=== PATIENT | female | born 1955 | race Caucasian/White ===

== ENCOUNTER → 2020-08-01 | Outpatient (CLI) | payer OTHER | END | disposition home or self-care (01) | LOC: MAMO-SONO 08:52 | PROVIDERS: ATTEND Radiology Diagnostic Radiology | DX: M25.511 Pain in right shoulder (principal); M67.88 Other specified disorders of synovium and tendon, other site ==

== ENCOUNTER 2020-12-05 08:00 | Outpatient (CLI) | payer OTHER | END 2020-12-05 08:30 | disposition home or self-care (01) | LOC: PPH VACUNA 08:00 | DX: Z23 Encounter for immunization (principal) ==

== ENCOUNTER 2021-03-19 12:42 | Outpatient (CLI) | payer OTHER | END 2021-03-19 13:00 | disposition home or self-care (01) | LOC: MAMO-SONO 12:42 | PROVIDERS: ATTEND Psychiatry & Neurology Psychiatry | DX: N64.59 Other signs and symptoms in breast (principal); Z12.31 Encounter for screening mammogram for malignant neoplasm of breast ==

== ENCOUNTER → 2021-04-24 | Outpatient (CLI) | payer OTHER | END | disposition home or self-care (01) | LOC: TOM 06:30 | PROVIDERS: ATTEND Internal Medicine Nephrology | DX: Q61.01 Congenital single renal cyst (principal) ==

== ENCOUNTER 2022-05-02 06:15 | Outpatient (CLI) | payer OTHER | END 2022-05-02 06:30 | disposition home or self-care (01) | LOC: MAMO-SONO 06:15 | PROVIDERS: ATTEND Psychiatry & Neurology Psychiatry | DX: Z12.39 Encounter for other screening for malignant neoplasm of breast (principal); N64.4 Mastodynia ==

== ENCOUNTER 2022-05-02 08:02 | Outpatient (CLI) | payer OTHER | END 2022-05-02 08:03 | disposition home or self-care (01) | LOC: NUCLEAR 08:02 | PROVIDERS: ATTEND Psychiatry & Neurology Psychiatry | DX: Z13.820 Encounter for screening for osteoporosis (principal) ==

== ENCOUNTER → 2022-05-29 | Outpatient (CLI) | payer OTHER | END | disposition home or self-care (01) | LOC: SONOGRAMA 06:20 | DX: M79.642 Pain in left hand (principal); M79.645 Pain in left finger(s) ==

== ENCOUNTER 2022-12-18 06:32 | Outpatient (CLI) | payer OTHER | END 2022-12-18 06:33 | disposition home or self-care (01) | LOC: LAB 06:32 | DX: E21.3 Hyperparathyroidism, unspecified (principal); E78.5 Hyperlipidemia, unspecified; R80.8 Other proteinuria; N39.0 Urinary tract infection, site not specified; E03.9 Hypothyroidism, unspecified; E11.65 Type 2 diabetes mellitus with hyperglycemia; I11.9 Hypertensive heart disease without heart failure; I70.0 Atherosclerosis of aorta ==

== ENCOUNTER 2023-01-27 07:13 | Outpatient (CLI) | payer OTHER | END 2023-01-27 07:14 | disposition home or self-care (01) | LOC: NUCLEAR 07:13 | DX: I20.0 Unstable angina (principal) | CPT/HCPCS: 78452; 93017; A9500; J0153 ==

== ENCOUNTER 2023-05-19 14:40 | Outpatient (CLI) | payer OTHER | END 2023-05-19 15:00 | disposition home or self-care (01) | LOC: MRI 14:40 | PROVIDERS: ATTEND Internal Medicine Rheumatology | DX: M54.2 Cervicalgia (principal); M47.812 Spondylosis without myelopathy or radiculopathy, cervical region | CPT/HCPCS: 72141 ==

== ENCOUNTER 2024-02-06 07:04 | Outpatient (CLI) | payer OTHER | END 2024-02-06 07:25 | disposition home or self-care (01) | LOC: TOM 07:04 | PROVIDERS: ATTEND General Practice | DX: N60.99 Unspecified benign mammary dysplasia of unspecified breast (principal); Z12.31 Encounter for screening mammogram for malignant neoplasm of breast; R93.1 Abnormal findings on diagnostic imaging of heart and coronary circulation; R51.9 Headache, unspecified; R42 Dizziness and giddiness ==

== ENCOUNTER 2024-03-31 12:47 | Emergency (ER) | payer OTHER ==
[~2024-03-31] VITALS: Ht 165.1 cm; Wt 75.3 kg
[2024-03-31] MEDS ORDERED: LOSARTAN-HCTZ1 EAC2 PO (14:45)
[2024-03-31] MEDS ORDERED: METFORMIN HCL500 M4 PO (14:45)
[2024-03-31] MEDS ORDERED: MONTELUKAST SOD10 MG PO (14:45)
[2024-03-31] MEDS ORDERED: DICLOFENAC SODI75 MG PO (14:51)
[2024-03-31] MEDS ORDERED: NORFLEX100MG PO (14:51)
[2024-03-31] MEDS ORDERED: TRIAMCINOLONE ACETONIDE 40 MG/ML VIAL IM ONE (15:00)
[2024-03-31] MEDS ORDERED: KETOROLAC TROMETHAMINE 60 MG VIAL IM ONE (15:00)
== END 2024-03-31 15:09 | disposition home or self-care (01) ==
LOC: ER 12:47
DX: M54.50 Low back pain, unspecified (principal); Z88.8 Allergy status to other drugs, medicaments and biological substances; I10 Essential (primary) hypertension; E11.9 Type 2 diabetes mellitus without complications; Z79.84 Long term (current) use of oral hypoglycemic drugs
CPT/HCPCS: 96372; 99282; J1885; J3301

== ENCOUNTER 2024-05-12 13:02 | Outpatient (CLI) | payer OTHER ==
[~2024-05-12 13:02] MED LIST: DICLOFENAC SODI75 MG PO; LOSARTAN-HCTZ1 EAC2 PO; METFORMIN HCL500 M4 PO; MONTELUKAST SOD10 MG PO; NORFLEX100MG PO
== END 2024-05-12 13:20 | disposition home or self-care (01) ==
LOC: MRI 13:02
PROVIDERS: ATTEND Radiology Diagnostic Radiology
DX: M54.12 Radiculopathy, cervical region (principal); M54.16 Radiculopathy, lumbar region
CPT/HCPCS: 72146; 72148